=== PATIENT | female | born 1975 | race Caucasian/White ===

== ENCOUNTER 2021-04-14 14:13 | Emergency (ER) | payer OTHER ==
[~2021-04-14] VITALS: Ht 162.6 cm; Wt 83.9 kg
[~2021-04-14 14:13] MED LIST: EFFEXOR XR37.5 MG PO; IRON325 M1 PO; LANTUS100 UNITS/ SUB-Q; LOSARTAN POTASS25 MG PO; NORCO 5-325 TA1 EACH PO; VITAMIN D3400 UNIT PO
[2021-04-14] MEDS ORDERED: GLUCOPHAGE500 MG PO (14:29)
[2021-04-14] MEDS ORDERED: HYDROCHLOROTH12.5 M1 PO (14:31)
[2021-04-14] MEDS ORDERED: GLIPIZIDE5 MG PO (14:31)
[2021-04-14] MEDS ORDERED: AMLODIPINE BESYL5 MG (14:32)
[2021-04-14] MEDS ORDERED: NORVASC5 MG PO (14:32)
--- NOTE | 2021-04-15 10:24 | EKG ---
[facility] [address] [facility] [place], [place] [address] Signed Normal sinus rhythm with sinus arrhythmia Normal ECG No previous ECGs available Confirmed by NEIDA SILVA MD ([id number]) on 04/15/2021 10:24:12 AM Electronically Signed By: NEIDA SILVA MD 04/15/21 1024 PATIENT NAME: GERTRUDE ECHEVERRIA FADIA Electrocardiogram DATE OF : 73 PHYSICIAN: NEIDA SILVA MD REPORT #: [id number] REPORT IS CONFIDENTIAL AND NOT TO BE RELEASED WITHOUT AUTHORIZATION
== END 2021-04-14 20:30 | disposition home or self-care (01) ==
LOC: ED 14:13
DX: R07.9 Chest pain, unspecified (principal); E11.9 Type 2 diabetes mellitus without complications; I10 Essential (primary) hypertension; F17.210 Nicotine dependence, cigarettes, uncomplicated; Z88.8 Allergy status to other drugs, medicaments and biological substances; Z79.899 Other long term (current) drug therapy; Z79.84 Long term (current) use of oral hypoglycemic drugs
CPT/HCPCS: 71045; 80053; 83735; 84484; 85025; 93005; 93010; 99285-25

== ENCOUNTER 2021-11-20 11:12 | Emergency (ER) | payer OTHER ==
[~2021-11-20] VITALS: Ht 162.6 cm; Wt 83.9 kg
[~2021-11-20 11:12] MED LIST changes: +AMLODIPINE BESYL5 MG; +GLIPIZIDE5 MG PO; +GLUCOPHAGE500 MG PO; +HYDROCHLOROTH12.5 M1 PO; +NORVASC5 MG PO
--- OUTSIDE RECORDS SUMMARY | 2021-11-20 11:22 | XMS ---
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 Opal has no Care Guidelines for this patient. EVirgilio VISIT COUNT (12 MO.) 2 GERARDO Kelly TOTAL 2 NOTE: Visits indicate total known visits. ED/UCC VISIT TRACKING (12 MO.) 11/20/2021 11:14 [facility] [place] TYPE: Emergency COMPLAINT: - HIGH BLOOD SUGAR +C 11/10 04/14/2021 14:[address] [facility] [place] TYPE: Emergency COMPLAINT: - CHEST PAIN DIAGNOSES: - Other intermediate (current) drug therapy - Type 2 diabetes mellitus without complications - Allergy status to other drugs, medicaments and biological substances - Nicotine dependence, cigarettes, uncomplicated - Nicotine dependence, unspecified, uncomplicated - nursing home (current) use of oral hypoglycemic drugs - Chest pain, unspecified - Essential (primary) hypertension INPATIENT VISIT TRACKING (12 MO.) No inpatient visits to display in this time frame [email or web address]
[2021-11-20] MEDS ORDERED: TOPROL XL25 MG PO (11:30)
[2021-11-20] MEDS ORDERED: AMOXICILLIN500 MG PO (11:56)
[2021-11-20] MEDS ORDERED: ONDANSETRON ODT8 MG PO (11:56)
== END 2021-11-20 12:11 | disposition home or self-care (01) ==
LOC: ED 11:12
DX: U07.1 COVID-19 (principal); J32.9 Chronic sinusitis, unspecified; E11.9 Type 2 diabetes mellitus without complications; I10 Essential (primary) hypertension; F17.200 Nicotine dependence, unspecified, uncomplicated; Z88.8 Allergy status to other drugs, medicaments and biological substances; Z79.84 Long term (current) use of oral hypoglycemic drugs; Z79.899 Other long term (current) drug therapy
CPT/HCPCS: 99283; A9270

== ENCOUNTER 2023-01-24 08:31 | Day surgery (SDC) | payer OTHER ==
[~2023-01-24] VITALS: Ht 162.6 cm; Wt 87.0 kg
[~2023-01-24 08:31] MED LIST changes: +AMOXICILLIN500 MG PO; +ONDANSETRON ODT8 MG PO; +TOPROL XL25 MG PO
[2023-01-24 08:48] VITALS: BP 118/72
[2023-01-24 11:59] VITALS: BP 114/73
--- NOTE | 2023-01-24 12:23 | NUR ---
01/24/23 1223 Daina Gómez 1117 PT ARRIVED IN PACU SLEEPY. ABD SOFT. 1125 RESTING. REU. 1145 AWAKENS TO VERBAL STIMULI, THEN FALLS BACK TO SLEEP. 1200 AWAKE SITTING UP IN BED SIPPING ON WATER. 1210 DC INSTRUCTIONS GIVEN TO PT/SPOUSE. LEFT VIA W/C.
--- NOTE | 2023-01-24 15:13 | OR ---
[facility] [address] [place], [place] [address] Signed DATE OF OPERATION: 01/24/2023 SURGEON: Romaine Garcia MD PREOPERATIVE DIAGNOSIS: Screening. POSTOPERATIVE DIAGNOSIS: 4 mm polyp at 25 cm in sigmoid colon. PROCEDURE: Colonoscopy with hot biopsy. ESTIMATED BLOOD LOSS: None. INDICATIONS: Jacqueline is a 47-year-old diabetic female, asked to see me for her initial screening colonoscopy. She has no lower GI complaints. There is no family history of colon cancer or polyps to her knowledge. In the office I had given her a pamphlet on colonoscopy. We reviewed the nature of the test. There is risk including, but not limited to gas bloating, crampy abdominal pain, bleeding, perforation requiring surgery, and missed diagnosis. We also reviewed the need for IV conscious sedation. She had expressed understanding and wished to proceed. PROCEDURE IN DETAIL: Jacqueline was taken into our endoscopy suite and placed in the left lateral decubitus position. She was given a total of 9 mg of Versed and 125 mcg of fentanyl to cover the case. A digital rectal exam was performed. Very little in the way of any external hemorrhoid tissue. She had good sphincter tone. There were no masses. The adult colonoscope was introduced and advanced under direct visualization of camera into the cecum itself. Her prep was good. We could easily see the appendiceal orifice and ileocecal valve. The scope was then slowly withdrawn. Back at 25 cm was a 5 mm sessile lesion, which we easily removed with the help of hot biopsy forceps. The rectum itself was unremarkable. Upon retroflexion of scope we did not see any additional pathology above the anal canal. After this, the gas was suctioned out. The colonoscope removed. Jacqueline tolerated the procedure quite well. RECOMMENDATIONS: I will see Jacqueline back in my office in 7 to 14 days to review her results. Electronically Signed By: ROMAINE GARCIA MD 01/24/23 1513 PATIENT NAME: AVELINAMARY BETH WILSONJACQUELINE DUNLAP FADIA OPERATIVE REPORT DATE OF : 73 REPORT #: [id number] PHYSICIAN: ROMAINE GARCIA MD PCP: [facility] REPORT IS CONFIDENTIAL AND NOT TO BE RELEASED WITHOUT AUTHORIZATION [address] [address] Signed Romaine Garcia MD ALB/MODL /[id number] cc: Romaine Garcia MD [facility] Copies: ROMAINE GARCIA MD [facility] ~ Electronically Signed By: ROMAINE GARCIA MD 01/24/23 1513 PATIENT NAME: JACQUELINE ECHEVERRIA OPERATIVE REPORT DATE OF : 73 REPORT #: [id number] PHYSICIAN: ROMAINE GARCIA MD PCP: [facility] REPORT IS CONFIDENTIAL AND NOT TO BE RELEASED WITHOUT AUTHORIZATION
--- NOTE | 2023-01-25 15:52 | PATH ---
[facility] [address] [place], [place] [address] Signed SPECIMEN(S): A SIGMOID POLYP AT 25 CM SPECIMEN SOURCE: A. SIGMOID POLYP AT 25 CM CLINICAL HISTORY: Screening colonoscopy. Post: Polyp x 1. FINAL PATHOLOGIC DIAGNOSIS: Sigmoid polyp at 25 cm: - Hyperplastic polyp (two fragments) JVR:[facility]:C2NR MICROSCOPIC EXAMINATION: Histologic sections of all submitted blocks are examined by light microscopy. These findings, together with the gross examination, support the pathologic diagnosis. GROSS DESCRIPTION: The specimen, labeled and designated "Monstre Simeon sigmoid polyp at 25 cm," is received in formalin and consists of three sauer soft tissue fragments, ranging from 0.1-0.2 cm. Entirely submitted in (A1). VB (under the direct supervision of a pathologist) The Gross Description was prepared using a voice recognition system. The report was reviewed for accuracy; however, sound-alike word errors, addition and/or deletions may occur. If there is any question about this report, please contact Client Services. PERFORMING LABORATORY: The technical component was performed by [facility], [address] [place] [id number] (CLIA# [id number]). Professional interpretation was performed by [facility], [address] [place] [id number] (CLIA#: [id number]). Diagnostician: Cecilio Lainez MD Pathologist Electronically Signed 01/25/2023 PATIENT NAME: GERTRUDE ECHEVERRIA PATHOLOGY DATE OF : 73 REPORT #: [id number] PHYSICIAN: MAGDY TORREZ PCP: [facility] REPORT IS CONFIDENTIAL AND NOT TO BE RELEASED WITHOUT AUTHORIZATION
== END 2023-01-24 12:10 | disposition home or self-care (01) ==
LOC: OPS 08:31 → DS 08:31 → OPS 09:45
PROVIDERS: ATTEND Colon & Rectal Surgery
PROC: 0DBN8ZX Excision of Sigmoid Colon, Via Natural or Artificial Opening Endoscopic, Diagnostic (ICD-10-PCS; principal; 2023-01-24 09:45)
DX: Z12.11 Encounter for screening for malignant neoplasm of colon (principal); F17.210 Nicotine dependence, cigarettes, uncomplicated; I10 Essential (primary) hypertension; E11.9 Type 2 diabetes mellitus without complications; F41.9 Anxiety disorder, unspecified; F32.A Depression, unspecified; K63.5 Polyp of colon
CPT/HCPCS: 84703; 88305; 99153; G0500; J2250; J3010; J7121

== ENCOUNTER 2025-01-18 22:45 | Emergency (ER) | payer BC, OTHER ==
[~2025-01-18] VITALS: Ht 162.6 cm; Wt 83.2 kg
[2025-01-18] MEDS ORDERED: INSULIN GL100 UNIT/2 SQ (23:02)
[2025-01-18] MEDS ORDERED: TRULICITY4.5 MG/0.5 SQ (23:02)
[2025-01-18] MEDS ORDERED: CEPHALEXIN500 M1 PO (23:38)
[2025-01-18] MEDS ORDERED: HYDROCODON-ACE1 EA10 PO (23:38)
[2025-01-18] MEDS ORDERED: CEPHALEXIN MONOHYDRATE 500 MG HOME.PACK PO ONE (23:45)
[2025-01-18] MEDS ORDERED: HYDROCODONE BIT/ACETAMINOPHEN 5/325 MG 1 TAB HOME.PACK PO ONE (23:45)
[2025-01-19 00:05] VITALS: BP 164/85
== END 2025-01-19 00:05 | disposition home or self-care (01) ==
LOC: ED 22:45
DX: K02.9 Dental caries, unspecified (principal); E11.9 Type 2 diabetes mellitus without complications; I10 Essential (primary) hypertension; F17.200 Nicotine dependence, unspecified, uncomplicated; Z88.8 Allergy status to other drugs, medicaments and biological substances; Z79.4 Long term (current) use of insulin; Z79.84 Long term (current) use of oral hypoglycemic drugs; Z79.899 Other long term (current) drug therapy
CPT/HCPCS: 99282; A9270

== ENCOUNTER 2025-02-16 14:34 | Emergency (ER) | payer BC, OTHER ==
[~2025-02-16] VITALS: Ht 162.6 cm; Wt 83.0 kg
[~2025-02-16 14:34] MED LIST changes: +CEPHALEXIN500 M1 PO; +HYDROCODON-ACE1 EA10 PO; +INSULIN GL100 UNIT/2 SQ; +TRULICITY4.5 MG/0.5 SQ
--- OUTSIDE RECORDS SUMMARY | 2025-02-16 14:40 | XMS ---
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 Mimi VISIT COUNT (12 MO.) [address] [place] [address] TOTAL 2 NOTE: Visits indicate total known visits. ED/UCC VISIT TRACKING (12 MO.) 02/16/2025 14:34 [facility] [place] TYPE: Emergency COMPLAINT: - BLOOD PRESSURE ISSUES 01/18/2025 22:45 [facility] [place] TYPE: Emergency COMPLAINT: - POSS INFECTION DIAGNOSES: - Allergy status to other drugs, medicaments and biological substances - Dental caries, unspecified - Essential (primary) hypertension - prison (current) use of insulin - prison (current) use of oral hypoglycemic drugs - Nicotine dependence, unspecified, uncomplicated - Other long filler cigar roller machine (current) drug therapy - Other specified disorders of teeth and supporting structures - Type 2 diabetes mellitus without complications INPATIENT VISIT TRACKING (12 MO.) No inpatient visits to display in this time frame [email or web address]
[2025-02-16] MEDS ORDERED: ATORVASTATIN CA20 MG PO (15:29)
[2025-02-16] MEDS ORDERED: diazePAM 5 MG TAB PO ONE (16:00)
[2025-02-16] MEDS ORDERED: MECLIZINE HCL 25 MG TAB PO ONE (16:00)
[2025-02-16] MEDS ORDERED: SODIUM CHLORIDE 0.9% 1,000 ML IV ONE (16:00)
[2025-02-16 16:23] LABS: BASOPHILS 0.8 % (0-2); EOSINOPHILS 1.5 % (0-6); HEMATOCRIT 39.5 % (35.0-50.0); HEMOGLOBIN 13.5 g/dL (12.0-18.0); LYMPHOCYTES 28.3 % (24-44); MCH 28.8 (27-36); MCHC 34.3 g/dl (30-36); MCV 83.9 fl (81-99); MONOCYTES 6.7 % (0-12); NEUTROPHILS 62.7 % (39-80); PLATELET COUNT 297 K/uL (140-440); RDW 14.4 (10.5-15.0)
[2025-02-16 16:37] LABS: ALBUMIN 3.3 g/dL (3.4-5.0); ANION GAP 10.5 (7-21); BILIRUBIN, TOTAL 0.3 mg/dL (0.2-1.0); BUN/CREATININE RATIO 8.75 (6.0-28.6); CALCIUM 8.8 mg/dL (8.5-10.1); CREATININE, SERUM 0.8 mg/dL (0.55-1.02); POTASSIUM 3.5 mmol/L (3.5-5.1); PROTEIN, TOTAL 6.6 g/dL (6.4-8.2)
[2025-02-16] MEDS ORDERED: MECLIZINE HCL25 MG PO (16:51)
[2025-02-16 17:14] VITALS: BP 133/82
== END 2025-02-16 17:18 | disposition home or self-care (01) ==
LOC: ED 14:34
PROVIDERS: Emergency Medicine
DX: H81.399 Other peripheral vertigo, unspecified ear (principal); E11.9 Type 2 diabetes mellitus without complications; I10 Essential (primary) hypertension; F17.200 Nicotine dependence, unspecified, uncomplicated; Z79.4 Long term (current) use of insulin; Z88.8 Allergy status to other drugs, medicaments and biological substances
CPT/HCPCS: 36415; 80053; 85025; 99284; A9270